=== PATIENT | female | born 1990 | race Caucasian/White ===

== ENCOUNTER 2021-10-29 12:15 | Emergency (ER) | payer BC, SELFPAY ==
[2021-10-29 12:18] VITALS: BP 133/96; PULSE 68; RESP 14; TEMP 36.3; O2SAT 98; BMI 35.2
--- NOTE | 2021-10-29 12:30 | RAD_ITS ---
STUDY: X-RAY - LEFT FOOT CLINICAL: Female, 31 years old. Pain after trauma TECHNIQUE: 3 view(s) of the foot. COMPARISON: None. FINDINGS: Normal talus and tarsal bones. Calcaneal spurs Normal visualized subtalar, talonavicular, calcaneocuboid, tarsal and tarsometatarsal articulations. Normal metatarsi. Normal metatarsophalangeal joint of the great toe. Normal tibial and fibular sesamoid bones. Normal interphalangeal joint of the great toe. Normal phalanges of the great toe. Normal second through fifth metatarsophalangeal joints. Normal interphalangeal joints and phalanges of the lesser toes. The soft tissue structures are unremarkable. RAD/Foot min 3 Views IMPRESSION: Calcaneal spurs, otherwise unremarkable left foot Electronically Signed: Enrique Su MD at 12:59 EDT ,
--- NOTE | 2021-10-29 13:26 | ED.VIS.LOWEX ---
HPI History of Present Illness HPI Narrative: Patient presents with injury to her left foot that occurred yesterday. Patient states she dropped a heavy object onto her left foot. Patient admits to some bruising over her left big toe. Patient denies any paresthesias or weakness. Patient states her pain is worse with movement. Patient states her pain is better with rest. Patient denies any other injuries. Patient denies any radiation of the pain up her leg. Chief Complaint: Lower Extremity Injury Informant: patient Occured/Mechanism Mechanism/Context: Yes blunt trauma Onset/Context/Timing Onset: Yesterday Context: Sudden Onset Timing: Continuous Quality of Pain: Aching Location: Left great toe Worsened by: Movement Relieved by: Rest Associated Symptoms Associated Symptoms: Negative for Parasthesia, Weakness or Loss of Funtion PFSH PFS Medical History Antiphospholipid antibody syndrome Kidney stones Home Medications aspirin 81 mg chewable tablet 81 mg PO DAILY 10/29/21 [History Last Taken Unknown] Allergy/AdvReac Type Severity Reaction Status Date / Time codeine AdvReac Other Verified 10/29/21 12:18 Surgical History no surgical history no surgical history Social History Smoking Status: Never smoker ROS ROS ED Constitutional Constitutional ED: Denies chills or fever(s) Eyes Eyes: Denies blurry vision or change in vision ENT ENT ED: Denies rhinorrhea or sore throat Cardiovascular Cardiovascular: Denies chest pain or palpitations Respiratory/Chest Respiratory/Chest: Denies cough or dyspnea Gastrointestinal Gastrointestinal: Denies nausea or vomiting Genitourinary Genitourinary ED: Denies dysuria or hematuria Musculoskeletal Musculoskeletal: Denies back pain or neck pain Integumentary Denies abscess or rash Neurologic Neurologic: Denies headache(s) or weakness Allergic/Immunologic Allergic/Immunologic ED: Denies mouth swelling or urticaria EXAM Physical Exam Const Vital Signs: 10/29/21 12:18 Temperature 97.3 F L Temperature Source Temporal Pulse Rate 68 Respiratory Rate 14 Blood Pressure 133/96 H Blood Pressure Mean 108 Pulse Ox 98 Oxygen Delivery Method Room Air Positive well nourished and well developed General Appearance ED: well developed and NAD HEENT Reports moist mucous membranes Extremity Extremity Narrative: There is tenderness, edema, and ecchymosis over the distal phalanx of the left great toe. There is no bony crepitance or step-off. There is no obvious deformity. Range of motion was limited in all motions of the left great toe secondary to pain. Sensation was intact to light touch in all digits. Capillary refill was less than 2 seconds in all digits. Neuro oriented x3, CN's II-XII intact bilaterally, moves all extremities and no sensory deficits noted Sensorium / Orientation: alert Motor Exam: strength 5/5 throughout Psych mental status grossly normal Skin no wounds MDM MDM MDM Narrative Medical decision making narrative: X-rays of the left foot were obtained. There are 3 views. On my interpretation, there is no acute fracture. There is no dislocation. There is some mild soft tissue swelling. Radiologist also interpreted the x-rays and agrees. Patient was given a postop shoe. Patient was instructed to ice and elevate the left foot. Patient was instructed to take Tylenol or ibuprofen as needed for pain. Patient was instructed to follow-up with her primary care physician in 5 to 7 days. Patient understood and was agreeable with the plan. All questions were answered. Radiography Diagnostic Testing: Clinical Impression(s) from Imaging Studies Foot X-Ray 10/29/21 12:30 IMPRESSION: Calcaneal spurs, otherwise unremarkable left foot Electronically Signed: Enrique Su MD at 12:59 EDT Reading Location ID and State: [facility] / [place] , Service support , Discharge Plan Triage Chief Complaint: Lower Extremity Injury ED Provider: Yobani Quick Dx/Rx/DC Orders Clinical Impression: Contusion of great toe of left foot Instructions: ED Foot Contusion Prescriptions: No Action aspirin 81 mg Tablet,Chewable 81 mg PO DAILY Primary Care Provider: COLIN SULTANA Referrals: COLIN SULTANA [Other] - 5-7 Days Disposition Disposition: Home, Self Care
[2021-10-29 13:46] VITALS: BP 134/77; PULSE 62; RESP 15; O2SAT 98
== END 2021-10-29 13:48 | disposition home or self-care (01) ==
PROVIDERS: Emergency Provider Emergency Medicine; Visit Provider Emergency Medicine
DX: S90.112A Contusion of left great toe without damage to nail, initial encounter (principal); W22.8XXA Striking against or struck by other objects, initial encounter; Z79.82 Long term (current) use of aspirin
CPT/HCPCS: 73630; 99282